=== PATIENT | female | born 1985 | race Caucasian/White ===

== ENCOUNTER 2017-02-14 17:03 | Emergency (ER) | payer MEDICARE | END 2017-02-14 19:22 | disposition home or self-care (01) | LOC: ER 17:03 | DX: K11.20 Sialoadenitis, unspecified (principal); M26.601 Right temporomandibular joint disorder, unspecified; I10 Essential (primary) hypertension; R59.1 Generalized enlarged lymph nodes; Z79.899 Other long term (current) drug therapy | CPT/HCPCS: 96372; 99282-25 ==